=== PATIENT | female | born 1980 | race Caucasian/White ===

== ENCOUNTER 2024-05-08 17:55 | Emergency (ER) | payer SELFPAY ==
[~2024-05-08] VITALS: Ht 160 cm; Wt 57.8 kg
[2024-05-08 17:59] VITALS: BP 131/74; O2SAT 97
[2024-05-08] MEDS ORDERED: NEUR300C PO (18:08)
[2024-05-08] MEDS ORDERED: LEVO-86 PO (18:08)
[2024-05-08 18:29] VITALS: TEMP 99.5
[2024-05-08 18:47] LABS: HEMATOCRIT 43.8 % (36.0-47.0); HEMOGLOBIN 14.9 g/dl (12.0-15.5); MEAN CORPUSCULAR HEMOGLOBIN 30.8 pg (27.0-33.0); MEAN CORPUSCULAR VOLUME 90.5 fl (80.0-96.0); PLATELET COUNT, AUTOMATED 336 10^3/uL (150-450); RED BLOOD COUNT 4.84 10^6/uL (4.00-5.40); WHITE BLOOD COUNT 10.2 10^3/uL (4.0-10.0)
[2024-05-08 19:06] LABS: ETHYL ALCOHOL (ETHANOL) < 0.003 % (0.000-0.010)
[2024-05-08 19:08] LABS: SALICYLATE LEVEL < 3.0 MG/DL (<30)
[2024-05-08 19:09] LABS: ALBUMIN 4.3 G/DL (3.2-5.2); ALKALINE PHOSPHATASE 61 U/L (35-104); ALT/SGPT 10 U/L (7.0-40); AST/SGOT 10 U/L (<34); BILIRUBIN,DIRECT < 0.1 MG/DL (<0.4); BILIRUBIN,TOTAL 0.4 MG/DL (0.3-1.2); BLOOD UREA NITROGEN 6 MG/DL (9-23); CALCIUM LEVEL 9.8 MG/DL (8.5-10.1); CARBON DIOXIDE LEVEL 22 MMOL/L (20-31); CHLORIDE LEVEL 110 MMOL/L (98-107); CREATININE FOR GFR 0.89 MG/DL (0.55-1.30); GLOMERULAR FILTRATION RATE > 60.0 (>58); GLUCOSE, FASTING 89 MG/DL (60-100); POTASSIUM SERUM 3.9 MMOL/L (3.5-5.1); SODIUM LEVEL 139 MMOL/L (136-145); TOTAL PROTEIN 7.2 G/DL (5.7-8.2)
[2024-05-08 19:10] LABS: THYROID STIMULATING HORMONE 2.273 uIU/ML (0.55-4.78)
[2024-05-08 19:14] LABS: AMPHETAMINES LEVEL URINE NEGATIVE (NEGATIVE); BARBITURATES URINE NEGATIVE (NEGATIVE); BENZODIAZEPINES URINE NEGATIVE (NEGATIVE); COCAINE METABOLITE URINE NEGATIVE (NEGATIVE); METHADONE URINE NEGATIVE (NEGATIVE); OPIATES URINE NEGATIVE (NEGATIVE)
[2024-05-08 19:15] LABS: CANNABINOIDS URINE NEGATIVE (NEGATIVE); PHENCYCLIDINE URINE NEGATIVE (NEGATIVE)
[2024-05-08 20:33] LABS: HCG, SERUM QUALITATIVE NEGATIVE (NEGATIVE)
== END 2024-05-08 20:22 | disposition home or self-care (01) ==
LOC: M ED 17:55
DX: F31.9 Bipolar disorder, unspecified (principal); E03.9 Hypothyroidism, unspecified; Z91.013 Allergy to seafood; Z79.899 Other long term (current) drug therapy

== ENCOUNTER → 2025-02-18 | Outpatient (CLI) | payer OTHER ==
[~2025-02-18] MED LIST: LEVO-86 PO; NEUR300C PO
[2025-02-18 07:52] LABS: BASO # 0.1 10^3/uL (0.0-0.2); BASO % 0.9 % (0.0-1.0); EOS # 0.3 10^3/uL (0.0-0.5); EOS % 3.3 % (0.0-3.0); LYMPH # 3.0 10^3/uL (1.5-5.0); LYMPH % 39.1 % (24.0-44.0); MONO # 0.5 10^3/uL (0.0-0.8); MONO % 6.1 % (2.0-8.0); NEUTROPHILS # 3.8 10^3/uL (1.5-8.5); NEUTROPHILS % 50.2 % (36.0-66.0); PLATELET COUNT, AUTOMATED 309 10^3/uL (150-450)
[2025-02-18 08:19] LABS: ALT/SGPT 11.0 U/L (7.0-40); AST/SGOT 12.0 U/L (<34); CALCIUM LEVEL 9.0 MG/DL (8.5-10.1); CARBON DIOXIDE LEVEL 29.0 MMOL/L (20-31); CHLORIDE LEVEL 106.0 MMOL/L (98-107); CREATININE FOR GFR 0.94 MG/DL (0.55-1.30); GLOMERULAR FILTRATION RATE 77.7 (>58); POTASSIUM SERUM 4.3 MMOL/L (3.5-5.1); SODIUM LEVEL 141.0 MMOL/L (136-145)
[2025-02-18 08:21] LABS: TOTAL 25(OH) VITAMIN D 18.8 NG/ML (20.0-100.0)
== END ==
LOC: M LAB 02-17 08:24
PROVIDERS: ATTEND Nurse Practitioner Psychiatric/Mental Health
DX: F41.1 Generalized anxiety disorder (principal); E03.9 Hypothyroidism, unspecified

== ENCOUNTER 2025-05-12 12:30 | Emergency (ER) | payer OTHER ==
[~2025-05-12] VITALS: Ht 167.6 cm; Wt 61.5 kg
[2025-05-12] MEDS ORDERED: BUSP1TAB (12:58)
[2025-05-12] MEDS ORDERED: ERGO500029 (12:58)
[2025-05-12] MEDS ORDERED: PROP10TA56 (12:58)
[2025-05-12] MEDS ORDERED: BUPR200T45 (12:58)
[2025-05-12] MEDS ORDERED: LEVO88TA3 (12:58)
[2025-05-12] MEDS: NS 500 ML IV ONE ×2 (13:22→15:14)
[2025-05-12] MEDS: ACETAMINOPHEN *IV* 1,000 MG in IV 1 EA IV ONE (13:51)
[2025-05-12 13:54] LABS: BASO # 0.1 10^3/uL (0.0-0.2); BASO % 0.6 % (0.0-1.0); EOS # 0.2 10^3/uL (0.0-0.5); EOS % 1.5 % (0.0-3.0); LYMPH # 2.5 10^3/uL (1.5-5.0); LYMPH % 24.8 % (24.0-44.0); MONO # 0.6 10^3/uL (0.0-0.8); MONO % 5.9 % (2.0-8.0); NEUTROPHILS # 6.7 10^3/uL (1.5-8.5); NEUTROPHILS % 67.0 % (36.0-66.0); PLATELET COUNT, AUTOMATED 297 10^3/uL (150-450)
[2025-05-12 14:28] LABS: HCG, SERUM QUALITATIVE NEGATIVE (NEGATIVE)
[2025-05-12] MEDS: METHOCARBAMOL 1,000 MG/10 ML VIAL IV ONE (15:05)
[2025-05-12] MEDS: KETOROLAC 30 MG/ML 1 ML VIAL IV ONE (15:06)
[2025-05-12] MEDS ORDERED: KETO-204 PO (16:20)
[2025-05-12] MEDS ORDERED: PRED20TA PO (16:20)
[2025-05-12] MEDS ORDERED: METH-1164 PO (16:21)
[2025-05-12 16:45] VITALS: BP 105/66
[2025-05-12 16:49] VITALS: O2SAT 99
[2025-05-12 17:09] VITALS: TEMP 99.6
== END 2025-05-12 17:11 | disposition home or self-care (01) ==
LOC: M ED 12:30 → EDBD 12:30 → M ED 17:11
DX: M54.31 Sciatica, right side (principal); M51.362 Other intervertebral disc degeneration, lumbar region with discogenic back pain and lower extremity pain; M47.817 Spondylosis without myelopathy or radiculopathy, lumbosacral region; M41.87 Other forms of scoliosis, lumbosacral region; F31.9 Bipolar disorder, unspecified; Z91.013 Allergy to seafood; Z79.899 Other long term (current) drug therapy; Z79.52 Long term (current) use of systemic steroids
CPT/HCPCS: 72110; 73502; 80047; 84703; 85025; 96361; 96365; 96375; 99285; J0134; J1885; J2800